=== PATIENT | male | born 1985 | race Caucasian/White ===

== ENCOUNTER 2022-09-18 14:49 | Emergency (ER) | payer BC ==
[~2022-09-18] VITALS: Ht 170.2 cm; Wt 86.2 kg
[2022-09-18] MEDS ORDERED: HYDROCODONE/APAP 10MG-325MG TAB PO ONE (15:15)
[2022-09-18] MEDS ORDERED: LIDOCAINE HCL 1% LOCAL INJ 20 ML VIAL ONE (15:44)
[2022-09-18] MEDS ORDERED: CEPHALEXIN 500 MG CAP PO ONE (16:00)
[2022-09-18] MEDS ORDERED: KEFLEX125 MG/5 M PO (16:04)
== END 2022-09-18 16:20 | disposition home or self-care (01) ==
LOC: ER 14:58
DX: S67.191A Crushing injury of left index finger, initial encounter (principal); W23.1XXA Caught, crushed, jammed, or pinched between stationary objects, initial encounter; Y99.0 Civilian activity done for income or pay
CPT/HCPCS: 11760; 73140; 99283; J2001